=== PATIENT | female | born 1945 | race Native Hawaiian/Other Pacific Islander ===

== ENCOUNTER 2017-05-10 19:44 | Emergency (ER) | payer SELFPAY ==
--- NOTE | 2017-05-10 21:05 | Cat Scan Report ---
FINAL REPORT PROCEDURE: CT HEAD/BRAIN WO CON TECHNIQUE: Computerized tomography of the head was performed without contrast material. HISTORY: fall; + l.o.c COMPARISON: No prior studies are available for comparison. FINDINGS: There is a large scalp hematoma left parietal region. There is no evidence of skull fracture. Linear bands of increased density are seen in a few of the sulci consistent with small amount of subarachnoid blood. This is visualized including the right and left frontal lobes anteriorly superiorly, the left frontal lobe posterior laterally, the left temporal lobe posteriorly medially and right cerebellar hemisphere posterior laterally. There is no mass effect. Sulcal pattern and fissures are prominent consistent with moderate atrophy. The ventricles are minimally prominent and are located in the midline. No definite parenchymal hemorrhage is identified. Visualized portions of the paranasal sinuses appear clear. Mastoid air cells are clear. There is a soft tissue density visualized in the left external auditory canal measuring approximately 1.7 centimeters x 4.7 millimeters. This may represent a large collection of ear wax. I cannot exclude other foreign bodies. IMPRESSION: Large scalp hematoma left parietal region. No evidence of skull fracture. There is moderate atrophy. There are small linear densities present in several of the sulci including the right and left frontal lobes, left temporal lobe and right cerebellar hemisphere as described consistent with small amount of subarachnoid hemorrhage related to the trauma. No definite parenchymal hemorrhage or mass effect is identified. There is no midline shift. Follow-up exam suggested to ensure stability. Large soft tissue density left external auditory canal as described above. Please see above comments. Critical value: These findings were discussed in detail with Dr. Mcclure by phone conversation 05/10/2017 at 8:56 p.m. Eastern standard time.
--- NOTE | 2017-05-10 21:19 | Cat Scan Report ---
FINAL REPORT PROCEDURE: CT CERVICAL SPINE WO CON TECHNIQUE: Computerized tomography of the cervical spine was performed from the skull base to T1 without contrast material. HISTORY: Trauma. Fell. Loss of consciousness. Pain. COMPARISON: No prior studies are available for comparison. FINDINGS: No fracture or subluxation is seen. Prevertebral soft tissues appear normal. Minimal anterior osteophytic spurring visualized C4-C5 and the C5-C6 disc space. Small central disc protrusion visualized at the C3-C4 disc space. Mild facet arthritis visualized bilaterally. Nonspecific calcification of the ligamentum nuchae is visualized. Calcifications are seen in the gutierrez of the carotid arteries indicating atherosclerotic disease. IMPRESSION: There is evidence of mild facet arthritis and mild degenerative disc disease as described. No fracture or subluxation is visualized. Atherosclerosis carotid arteries..
--- NOTE | 2017-05-10 21:25 | Emergency Department Report ---
HPI - General Chief Complaint: Fall Time Seen by Provider: 05/10/17 21:00 - HPI HPI: This is a 71-year-old female presents to the emergency Department through triage with a complaint of slipping and falling down from 1 step up while leaving the store and hitting her head. Family says that she lost consciousness after hitting her head for about 10 minutes and the patient does not remember the event. She is currently awake and alert and only has a complaint of head pain. She has a past medical history of insulin-dependent diabetes. She denies being on aspirin or any blood thinners. She did not take anything for her symptoms without presentation. She lives in [place] and is currently here visiting. She denies any neck pain, back pain, extremity pain, any deformities, vision change, nausea or vomiting. ED Past Medical Hx - Past Medical History Hx Diabetes: Yes - Social History Smoking Status: Never Smoker Substance Use Type: None ED Review of Systems ROS: Stated complaint: GROUND LEVEL FALL Other details as noted in HPI Comment: All other systems reviewed and negative Constitutional: denies: chills, fever Eyes: denies: eye pain, eye discharge, vision change ENT: denies: ear pain, throat pain Respiratory: denies: cough, shortness of breath, wheezing Cardiovascular: denies: chest pain, palpitations Gastrointestinal: denies: abdominal pain, nausea, diarrhea Genitourinary: denies: urgency, dysuria, discharge Musculoskeletal: denies: back pain, joint swelling, arthralgia Skin: denies: rash, lesions Neurological: headache. denies: numbness, paresthesias Physical Exam - Physical Exam Vital Signs: Vital Signs 05/10/17 05/10/17 20:03 20:09 Temperature 98.5 F 98.5 F Pulse Rate 78 80 Respiratory 18 17 Rate Blood Pressure 190/74 190/74 O2 Sat by Pulse 97 98 Oximetry Physical Exam: GENERAL: The patient is well-developed well-nourished. HENT: Normocephalic. Patient has moist mucous membranes. EYES: Extraocular motions are intact. Pupils equal reactive to light bilaterally. NECK: Supple. Trachea is midline. Full range of motion. No step-off or deformity. No tenderness palpation. CHEST/LUNGS: Clear to auscultation. There is no respiratory distress noted. HEART/CARDIOVASCULAR: Regular. There is no tachycardia. There is no murmur. ABDOMEN: Abdomen is soft, nontender. Patient has normal bowel sounds. There is no abdominal distention. SKIN: Skin is warm and dry. There is a non-expanding hematoma to the left posterior parietal scalp. NEURO: The patient is awake, alert, and oriented. The patient is cooperative. The patient has no focal neurologic deficits. The patient has normal speech. Cranial nerves II through XII grossly intact. MUSCULOSKELETAL: There is no tenderness or deformity. There is no limitation range of motion. ED Course Vital Signs 05/10/17 05/10/17 20:03 20:09 Temperature 98.5 F 98.5 F Pulse Rate 78 80 Respiratory 18 17 Rate Blood Pressure 190/74 190/74 O2 Sat by Pulse 97 98 Oximetry - Consultations Consultation #1: 05/10/17 21:25 Contacted [facility] regarding transfer for [facility]. Awaiting call back. 05/10/17 21:46 Patient was accepted for transfer from ER to ER by the trauma surgeon, Dr. Nails. ED Medical Decision Making - Lab Data Result diagrams: 05/10/17 21:55 05/10/17 21:55 - EKG Data -: EKG Interpreted by Mo EKG shows normal: sinus rhythm, axis, intervals, QRS complexes (RVH), ST-T waves Rate: normal - EKG Data When compared to previous EKG there are: previous EKG unavailable Interpretation: other (Sinus, 71 bpm, RVH, no STEMI) - Radiology Data Radiology results: report reviewed PROCEDURE: CT CERVICAL SPINE WO CON TECHNIQUE: Computerized tomography of the cervical spine was performed from the skull base to T1 without contrast material. HISTORY: Trauma. Fell. Loss of consciousness. Pain. COMPARISON: No prior studies are available for comparison. FINDINGS: No fracture or subluxation is seen. Prevertebral soft tissues appear normal. Minimal anterior osteophytic spurring visualized C4-C5 and the C5-C6 disc space. Small central disc protrusion visualized at the C3-C4 disc space. Mild facet arthritis visualized bilaterally. Nonspecific calcification of the ligamentum nuchae is visualized. Calcifications are seen in the gutierrez of the carotid arteries indicating atherosclerotic disease. IMPRESSION: There is evidence of mild facet arthritis and mild degenerative disc disease as described. No fracture or subluxation is visualized. Atherosclerosis carotid arteries.. Transcribed By: DFN Dictated By: MONIKA MONTES DE OCA MD Electronically Authenticated By: MONIKA MONTES DE OCA MD Signed Date/Time: 05/10/17 6139 PROCEDURE: CT HEAD/BRAIN WO CON TECHNIQUE: Computerized tomography of the head was performed without contrast material. HISTORY: fall; + l.o.c COMPARISON: No prior studies are available for comparison. FINDINGS: There is a large scalp hematoma left parietal region. There is no evidence of skull fracture. Linear bands of increased density are seen in a few of the sulci consistent with small amount of subarachnoid blood. This is visualized including the right and left frontal lobes anteriorly superiorly, the left frontal lobe posterior laterally, the left temporal lobe posteriorly medially and right cerebellar hemisphere posterior laterally. There is no mass effect. Sulcal pattern and fissures are prominent consistent with moderate atrophy. The ventricles are minimally prominent and are located in the midline. No definite parenchymal hemorrhage is identified. Visualized portions of the paranasal sinuses appear clear. Mastoid air cells are clear. There is a soft tissue density visualized in the left external auditory canal measuring approximately 1.7 centimeters x 4.7 millimeters. This may represent a large collection of ear wax. I cannot exclude other foreign bodies. IMPRESSION: Large scalp hematoma left parietal region. No evidence of skull fracture. There is moderate atrophy. There are small linear densities present in several of the sulci including the right and left frontal lobes, left temporal lobe and right cerebellar hemisphere as described consistent with small amount of subarachnoid hemorrhage related to the trauma. No definite parenchymal hemorrhage or mass effect is identified. There is no midline shift. Follow-up exam suggested to ensure stability. Large soft tissue density left external auditory canal as described above. Please see above comments. - Medical Decision Making The patient is awake and alert with a GCS of 15. She had a fall with some traumatic injury to the head that caused multiple small subarachnoid hemorrhages. Labs are mostly unremarkable. There was some hyperglycemia but no signs of diabetic ketoacidosis. Patient was accepted for admission by the trauma service of [facility] and was sent over lights and sirens by ambulance with all of her labs, chart and images. Family was aware and updated with the imaging results and the plan for transfer. [facility] was used for translation services. - Differential Diagnosis skull fracture, brain bleed, concussion, contusion Critical Care Time: No Critical care attestation.: If time is entered above; I have spent that time in minutes in the direct care of this critically ill patient, excluding procedure time. ED Disposition Clinical Impression: Subarachnoid hemorrhage, Hyperglycemia Concussion Qualifiers: Encounter type: initial encounter Loss of consciousness presence/duration: with LOC of 30 min or less Qualified Code(s): S06.0X1A - Concussion with loss of consciousness of 30 minutes or less, initial encounter Head injury Qualifiers: Encounter type: initial encounter Qualified Code(s): S09.90XA - Unspecified injury of head, initial encounter Hypertension Qualifiers: Hypertension type: essential hypertension Qualified Code(s): I10 - Essential ( primary) hypertension Disposition: DC/TX-70 ANOTHER TYPE HLTHCARE Is pt being admited?: No Condition: Fair Instructions: Hypertension (ED) Referrals: MORIS MEDEL MD [Primary Care Provider] - 3-5 Days Time of Disposition: 01:29
[2017-05-10 22:13] LABS: Basophils % (Auto) 0.5 % (0.0-1.8); Eosinophils # (Auto) 0.1 K/mm3 (0.0-0.4); Eosinophils % (Auto) 1.6 % (0.0-4.3); Hematocrit 48.5 % (30.3-42.9); Hemoglobin 15.9 gm/dl (10.1-14.3); Lymphocytes # (Auto) 1.8 K/mm3 (1.2-5.4); Lymphocytes % (Auto) 19.2 % (13.4-35.0); Mean Corpuscular HGB Conc 33 % (30-34); Mean Corpuscular Hemoglobin 29 pg (28-32); Mean Corpuscular Volume 90 fl (79-97); Monocytes # (Auto) 0.5 K/mm3 (0.0-0.8); Monocytes % (Auto) 5.1 % (0.0-7.3); Platelet Count 173 K/mm3 (140-440); Red Blood Count 5.42 M/mm3 (3.65-5.03); Red Cell Distribution Width 13.3 % (13.2-15.2)
[2017-05-10 22:21] LABS: BUN/Creatinine Ratio 33; Blood Urea Nitrogen 26 mg/dL (7-17); Calcium 8.7 mg/dL (8.4-10.2); Hemolysis Index 42
[2017-05-10 22:23] LABS: INR 0.93 (0.87-1.13); Partial Thromboplastin Time 25.8 Sec. (24.2-36.6)
[2017-05-10 22:26] VITALS: BP 170/65
== END 2017-05-10 22:41 | disposition other institution (70) ==
LOC: ED 19:44
DX: S06.6X1A Traumatic subarachnoid hemorrhage with loss of consciousness of 30 minutes or less, initial encounter (principal); I10 Essential (primary) hypertension; E11.9 Type 2 diabetes mellitus without complications; Z79.4 Long term (current) use of insulin; W01.198A Fall on same level from slipping, tripping and stumbling with subsequent striking against other object, initial encounter; Y93.89 Activity, other specified; Y99.8 Other external cause status; Y92.512 Supermarket, store or market as the place of occurrence of the external cause
CPT/HCPCS: 36415; 70450; 72125; 80048; 82962; 85025; 85610; 85730; 93005; 93010